=== PATIENT | female | born 1935 | race Caucasian/White ===

== ENCOUNTER 2017-02-09 09:32 | Inpatient (IN) | payer BC ==
--- NOTE | ~2017-02-09 | DS ---
Discharge Summary [address] [place]. [address] NAME: JAMAICA IBARRA : 34 STATUS : DIS IN PAT#: [id number] AGE: 81 ADM/REG DATE : 02/09/17 MR#: [id number] REPORT SERV DATE: 02/16/17 DICTATED BY: DATE: REPORT STATUS : Draft TRANSCRIBED BY: MODL DATE: 02/15/17 ADMISSION DATE: 02/09/2017 DISCHARGE DATE: 02/15/2017 DISCHARGE DIAGNOSES: 1. Multiple pulmonary nodules. 2. Severe weight loss. 3. Catheter associated urinary tract infection that was present on arrival. 4. Diabetes mellitus type 2. 5. Anemia. 6. Chronic low back pain. 7. Hypertension. CONSULTING PHYSICIANS: Include Dr. Feliciano with Pulmonology. DISCHARGE MEDICATIONS: Include Neurontin 300 mg p.o. t.i.d., atenolol 25 mg p.o. at bedtime, Lidocaine patch 700 mg topical daily, lisinopril 10 mg p.o. daily, Mobic 15 mg p.o. daily, mirtazapine 15 mg p.o. at bedtime, Macrobid 100 mg p.o. b.i.d. x3 more doses, MiraLAX one packet p.o. daily, Dulcolax 10 mg suppository p.r.n. for constipation, Valium 5 mg p.o. at bedtime p.r.n., [place] 10/325 mg tablet one tab p.o. q.4 hours p.r.n. PROCEDURE: Include bronchoscopy performed by Dr. Feliciano. Examination was normal. Bronchoalveolar lavage was performed. Transbronchial brushings were obtained, and transbronchial lung biopsies were performed. We are still awaiting biopsy results. Multiple chest x-rays were performed. Initially, there were interstitial and alveolar infiltrates that had improved from 01/17/2017 with patchy residual and hyperinflation. 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 CT of the brain without contrast was performed. No acute infarct or hemorrhage was noted. Mild atrophy and chronic white matter gliosis was noted. MRI of the lumbar spine was performed that showed significant facet arthropathy. There is a small L5-S1 herniation and neural foraminal stenosis on the left at L4-5, which could explain left L4 or L5 nerve root irritation clinically. CT of the abdomen and pelvis with contrast was performed, and CT of the chest with contrast was performed. There were bilateral infiltrates and small focal areas of consolidation, slightly increased compared to 01/27/2017 especially in the right lower lobe and posterior right upper lobe. This was performed on 02/10/2017. No evidence of acute abnormality within the abdomen or pelvis was noted. For full history and physical, please refer to Dr. Shae Schmitz, dictation on 02/09/2017. Please also see Alpesh Burton PA-C consultation dictation on 02/09/2017, and lastly please refer to Dr. Tommie Evangelista's interim discharge summary on 02/14/2017. In the last 24 hours, the patient has remained clinically stable. She did well with her bronchoscopy yesterday. Discharge Summary [address] [address] NAME: JAMAICA IBARRA : 34 STATUS : DIS IN PAT#: [id number] AGE: 81 ADM/REG DATE : 02/09/17 MR#: [id number] REPORT SERV DATE: 02/16/17 DICTATED BY: DATE: REPORT STATUS : Draft TRANSCRIBED BY: MODL DATE: 02/15/17 On last vital signs; temp 97.6, heart rate 77, respiratory rate 20, O2 saturation 94% on room air, blood pressure 136/63. HOSPITAL COURSE/PROBLEM LIST: 1. Multiple pulmonary nodules. After bronchoscopy yesterday, Dr. Feliciano did not use see an overt tumor or anything else upon examination. We are still awaiting biopsy brush results. Possibly, the patient has Mycobacterium avium complex but we will see what the results show. 2. Severe weight loss. The patient has lost 70 to 80 pounds in seven to eight months ago. We will continue the patient on mirtazapine. She has been eating well in the last 24 hours. She is drinking Boost supplements, and I will continue her mirtazapine upon discharge. 3. Urinary tract infection that was present on arrival. The patient has been on nitrofurantoin for four days now. Continue this for three more doses completing a five- day course. 4. Diabetes mellitus type 2. This is controlled. She has not required insulin since admission. She is not on oral agents at this time. She can follow up with her primary care provider for further monitoring of this. 5. Anemia. Hemoglobin and hematocrit were 9.6 and 30.5, this is likely due to malnutrition. Again this can be monitored as an outpatient with her primary care provider during her next followup visit. 6. Chronic low back pain. As mentioned above in the MRI of the spine, the patient does have significant facet disease. I will continue her p.r.n. narcotic medications. 7. Hypertension. The patient's blood pressure has been controlled. We will continue her atenolol and lisinopril. The patient will be transferred to [facility] for acute rehab. She will follow up with Dr. Abreu of Pulmonology in two to four weeks as well as Dr. Francisco Javier Up, her primary care provider. CLR/MODL Victor M Mena NP / [id number] CC: MD Francisco Javier Mccord M.D. Pamela Sud, M.D.
--- NOTE | ~2017-02-09 | IDS ---
Interim Discharge Summary [facility] [address] [place]. [address] NAME: JAMAICA IBARRA : 34 STATUS : ADM IN PAT#: [id number] AGE: 81 ADM/REG DATE : 02/09/17 MR#: [id number] REPORT SERV DATE: 02/14/17 DICTATED BY: CHRIS ANTONIO DATE: 02/14/17 REPORT STATUS : Draft TRANSCRIBED BY: MODHiro DATE: 02/14/17 ADMISSION DATE: 02/09/2017 DISCHARGE DATE: DATE OF INTERIM SUMMARY: 02/14/2017 PRINCIPAL DIAGNOSIS: Pulmonary nodules. SECONDARY DIAGNOSES: Severe weight loss with failure to thrive syndrome; catheter-associated UTI, present on admission; uncontrolled hypertension; type 2 diabetes, in remission; anemia of chronic disease; chronic low back pain with chronic opioid dependence and opioid-induced constipation; generalized weakness; and heart murmur, not otherwise specified. HISTORY OF PRESENT ILLNESS: Please see Dr. Foster's dictation, 02/09/2017. HOSPITAL COURSE: Admitted with weakness, urinary infection, failure to thrive, found to have an abnormal x-ray, abnormal CT with pulmonary nodules. The patient actually had been referred to Dr. Feliciano previously for a biopsy of these, but she had been lost to followup and she was encouraged to seek admission to have this done as an inpatient. Bronchoscopy with biopsy was done on 02/14/2017, results of which are pending. However, the patient's weakness and weight loss were profound. She had lost 70 to 80 pounds in seven to eight months. She had become dependent on opioids and become increasingly bedridden in account of severe low back pain. MRI of the L-spine had revealed some facet disease and some spondylosis, but there was no spinal stenosis or critical need for surgical intervention. The patient received a bowel regimen, was put on appetite stimulants and nutritional supplements. Physical therapy, occupational therapy, and nutritional therapy were all on board. Her case with anticipation of [facility] facility placement following discharge. I had conferred with the patient's family, however, regarding the importance of eating and that if her appetite would not increase, decisions for end of life care should be discussed. We do anticipate ramping up the mirtazapine in the meantime with addition of Megace if her biopsy is negative for neoplasia. If, however, positive for neoplasia, once again, end of life care will need to be discussed. Dr. Askew will see this patient tomorrow. JOSÉ MANUEL/EWA Chris Antonio M.D. / [id number] CC: Chris Antonio M.D. Interim Discharge Summary [address] [address] NAME: JAMAICA IBARRA : 34 STATUS : ADM IN [facility]#: [id number] AGE: 81 ADM/REG DATE : 02/09/17 MR#: [id number] REPORT SERV DATE: 02/14/17 DICTATED BY: CHRIS ANTONIO DATE: 02/14/17 REPORT STATUS : Draft TRANSCRIBED BY: EWA DATE: 02/14/17 Sonia Garcia M.D.
--- NOTE | ~2017-02-09 | HP ---
History And Physical [id number] [facility] [place]. [address] NAME: JAMAICA IBARRA : 34 STATUS : ADM Darron PAT#: [id number] AGE: 81 ADM/REG DATE : 02/09/17 MR#: [id number] REPORT SERV DATE: 02/09/17 DICTATED BY: APRIL SCHMITZ DATE: 02/09/17 REPORT STATUS : Draft TRANSCRIBED BY: MODHiro DATE: 02/09/17 DATE OF ADMISSION: 02/09/2017 CHIEF COMPLAINT: Multiple. HISTORY OF PRESENT ILLNESS: The patient is an 81-year-old white female, who lives at home with her who suffers from dementia, and she is here alone in the emergency department. Apparently, he dropped her off. She can really provide a little in the way of history, says she has felt poor. She appears quite cachectic. For additional history, I contacted Dr. Up's office. Apparently, she has lost a tremendous amount of weight over the last six months to one year and she has not been eating. He feared that she could have some underlying malignancy, actually CT'd her chest, abdomen, pelvis and he found that she had these opacities on her CT chest. It was described as an extensive tree-in-bud infiltrates compared to 2013 with development of peripheral triangular soft tissue densities most consistent with possible organizing pneumonia versus MAC. He was concerned she could have an underlying malignancy and felt she needed to see Dr. Feliciano again. She had seen him previously for what sounds like a lung nodule. She never actually showed up for the appointment, would never return phone calls, and Dr. Up became concerned. Finally, she was agreeable to come to the hospital and she presented to the ER today. She cannot really tell me if she has had fever or cough and her is no longer at bedside. PAST MEDICAL HISTORY: Positive for, 1. Diabetes mellitus. 2. Chronic urinary retention with chronic indwelling suprapubic catheter. 3. GERD. 4. Hypertension. 5. Anemia. 6. Lung nodule. 7. Esophageal stricture with dilatation. 8. Dysphagia. PAST SURGICAL HISTORY: She has had cataract surgery, neck surgery, left rotator cuff surgery, small bowel obstruction repair x2, hernia repair, appendectomy, cholecystectomy, hysterectomy. SOCIAL HISTORY: She is a nondrinker, nonsmoker. She lives with her who also suffers from dementia. FAMILY HISTORY: Positive for diabetes mellitus. HOME MEDICATIONS: Pending the MAR. REVIEW OF SYSTEMS: Full 10-point review of systems obtained. Pertinent positives are mentioned in the HPI. PHYSICAL EXAMINATION: History And Physical [address] [address] NAME: JAMAICA IBARRA : 34 STATUS : ADM Darron PAT#: [id number] AGE: 81 ADM/REG DATE : 02/09/17 MR#: [id number] REPORT SERV DATE: 02/09/17 DICTATED BY: APRIL SCHMITZ DATE: 02/09/17 REPORT STATUS : Draft TRANSCRIBED BY: EWA DATE: 02/09/17 GENERAL: Very cachectic, frail-appearing, white female. HEENT: Normocephalic, atraumatic. HEART: Regular rate and rhythm with 3/6 systolic ejection murmur. LUNGS: She has some wheezes at the bases and some crackles. ABDOMEN: Soft, nontender, nondistended. She has a suprapubic catheter in place. EXTREMITIES: Warm and dry. Skin is intact. She has pulses in her feet. No obvious rashes are noted. Chest x-ray was unrevealing. Strep screen was negative. CBC: White count was 12, H and H 11 and 34, and platelets 459. Coags are normal. Urinalysis shows greater than 182 reds, many white blood cell clumps, and large leukocyte esterase. Basic metabolic panel: Sodium 132, potassium 2.9, chloride 85, CO2 of 33, BUN and creatinine 18 and 0.49, glucose 130. LFTs are normal other than albumin of 3.4. Troponin is 0.02. Lactate was normal at 1.2. Chest x-ray showed slightly less hyper-aerated lungs, but similar to previous chest x-ray. BNP was 124. EKG showed sinus rhythm with LVH. ASSESSMENT/PLAN: 1. Urinary tract infection. We will cover with Zosyn since it is a complicated urinary tract infection with suprapubic catheter. Hydrate gently overnight. 2. Hypokalemia. We will replace potassium. 3. Mild hyponatremia. We will give her some normal saline overnight and hydration. I suspect she is volume depleted. 4. Diabetes mellitus. We will add some sliding scale and confirm her home medications. 5. Weight loss with recent abnormal chest CT with the above-mentioned findings. We will contact Pulmonary. Dr. Up wanted her to be seen by Dr. Feliciano while she is here for further diagnostic evaluation. 6. DVT prophylaxis. Subcutaneous heparin. 7. History of hypertension. Again confirming home medications. 8. Relatively new onset dementia. We will give her some IV thiamine. I am going to CT her brain without contrast. Check her prealbumin. Check her thyroid function and go from there. 9. Disposition. Pending above. HANANE/MODL Apirl Schmitz M.D. / [id number] CC: Onesimo Foster Jr, MD Mark Heinsohn, M.D. Krishnendu Bhadra, M.D.
--- NOTE | ~2017-02-09 | CN ---
Consultation Report [facility] [address] [place]. [address] NAME: FILOMENA PICHARDO : 34 STATUS : ADM Darron PAT#: [id number] AGE: 81 ADM/REG DATE : 02/09/17 MR#: [id number] REPORT SERV DATE: 02/09/17 DICTATED BY: ALPESH QURESHI DATE: 02/09/17 REPORT STATUS : Draft TRANSCRIBED BY: MODL DATE: 02/09/17 CONSULT NOTE DATE OF CONSULTATION: 02/09/2017 CHIEF COMPLAINT: Abnormal findings on a CT of the chest performed on 01/27/2017. Mrs. Filomena Pichardo is a frail 81-year-old white female with a past medical history significant for diabetes mellitus, hypertension, chronic urinary retention status post suprapubic catheter, who presents to [facility]'s emergency room with weakness. It should be noted that Mrs. Pichardo has not been hospitalized recently. That being said, she has had a declining course as of late. Mrs. Pichardo is not currently followed by a unemployment claims adjudicator. She does not usually require supplemental oxygen. She is on no pulmonary medications. The patient describes herself as a never smoker. She largely denies symptomatology related to obstructive sleep apnea. She describes her exercise tolerance is being somewhat limited, but cannot specifically quantify. Mrs. Pichardo has had some significant weight loss over the last few months. She states that she might have lost 40 pounds total. From a history, it seems that she presented to her primary care physician who eventually ordered a CT of her chest. This was performed 01/27/2017 and demonstrated some tree-in-bud interstitial infiltrates as well as some triangular-shaped densities bilaterally. The patient eventually presented to the emergency room with complaints of weakness. Initial blood pressure was 172 systolic. She was afebrile. She had appropriate oxygenation on room air. She had an elevated white blood cell count of 12,400. Potassium was 2.8, subsequently repleted. Creatinine was 0.49. Due to the concerns of her CT findings, Pulmonary has been consulted. Currently, the patient denies any shortness of breath. She denies any cough. She denies any wheezing in her chest. She denies any chest pain. She denies any recent episodes of hemoptysis. She is not producing any purulent sputum. She denies childhood asthma, past smoking history, or any unusual exposures. The patient does have known hypertension. She currently denies any murmurs, angina, or palpitations. She denies any orthopnea, paroxysmal nocturnal dyspnea, or edema. In regard to constitutional symptoms, she had one episode of chills yesterday. She does have a decreased appetite. She denies any night sweats. She denies any abdominal pain or edema. PAST MEDICAL HISTORY: 1. Chronic urinary retention, status post suprapubic catheter placement. 2. Diabetes mellitus. Consultation Report [address] [place]. [address] NAME: FILOMENA PICHARDO : 34 STATUS : ADM Darron PAT#: [id number] AGE: 81 ADM/REG DATE : 02/09/17 MR#: [id number] REPORT SERV DATE: 02/09/17 DICTATED BY: ALPESH QURESHI DATE: 02/09/17 REPORT STATUS : Draft TRANSCRIBED BY: EWA DATE: 02/09/17 3. Hypertension. 4. Previous DVT. 5. Previous pneumonia. PAST SURGICAL HISTORY: 1. Left rotator cuff surgery. 2. Appendectomy. 3. Cholecystectomy. 4. Small bowel obstruction, status post lysis of adhesions. 5. Hysterectomy. 6. Right knee surgery. 7. Neck surgery. 8. Suprapubic catheter placement. 9. EGD with esophageal dilatation. FAMILY HISTORY: The patient denies a family history of lung disease. SOCIAL HISTORY: The patient lives at home. She has a son and a granddaughter who are participants in her healthcare. She denies any known exposures to dust, silica, or asbestos. She denies any recent sick contacts. TOBACCO/ALCOHOL: As previously mentioned, the patient describes herself as a never smoker. She denies any recent alcohol or illicit drug use. MEDICATIONS: 1. Gabapentin 300 mg. 2. Hydrocodone 10/325. 3. Lisinopril 10 mg. 4. Meloxicam 15 mg. 5. Propranolol 10 mg. ALLERGIES: THE PATIENT HAS KNOWN ALLERGY TO SULFA. REVIEW OF SYSTEMS: A complete review of systems was performed with pertinent positives and negatives contained within the body of the HPI. PHYSICAL EXAMINATION: VITAL SIGNS: Blood pressure is 175/78, heart rate is 91, T-max is 99.8, respiratory rate is 16, SpO2 is 95% on room air. GENERAL: The patient is a pleasant, well-nourished/well-developed female who is not currently exhibiting any signs of acute distress. SKIN: Skin with appropriate texture and turgor. No rashes, lesions, or ulcers. Nails are clear without cyanosis or clubbing. HEENT: Head: Skull is normocephalic/atraumatic. Facies symmetric. No masses or lesions. Consultation Report [address] [place]. [address] NAME: FILOMENA PICHARDO : 34 STATUS : ADM Darron PAT#: [id number] AGE: 81 ADM/REG DATE : 02/09/17 MR#: [id number] REPORT SERV DATE: 02/09/17 DICTATED BY: ALPESH QURESHI DATE: 02/09/17 REPORT STATUS : Draft TRANSCRIBED BY: EWA DATE: 02/09/17 Eyes: Sclera anicteric, conjunctiva pink without exudates. Extraocular movements intact. Pupils are equal, round, reactive to light. Ears: Auricles and tragus without pain to palpation. Hearing is grossly intact. Nose: Bilateral nasal patency. Sinuses without tenderness upon palpation. Throat: The patient is edentulous. Lips, oral mucosa, tongue, palate, and pharynx pink and moist without lesions. Uvula rises equally on phonation. Tongue midline without deviation. NECK: Neck supple. Trachea midline. No cervical lymphadenopathy appreciated. THORAX/LUNGS: Thorax is symmetric with equal chest rise. Breath sounds audible through entire field. A few scattered inspiratory crackles. No rales, wheezes, rhonchi. CARDIOVASCULAR: Regular rate and rhythm. No murmurs, rubs, or gallops. Anterior chest without thrills, heaves, or lifts. ABDOMEN: Soft. Nondistended, nontender. Active bowel sounds in all four quadrants. No hepatosplenomegaly noted. PERIPHERAL/VASCULAR: No edema. No varicosities, stasis changes, open sores, ulcerations, or phlebitis. 2+ pulses in radial and dorsalis pedis. MUSCULOSKELETAL: Full AROM and PROM in all joints. No evidence of erythema, deformity, or crepitus. NEUROLOGIC: CN 2 through 12 grossly intact. Good muscle bulk and tone bilaterally. Strength 5/5 throughout. PSYCHIATRIC: The patient demonstrates good judgment and insight. The patient is A and O x3. Accessory [place] [address]. Potassium is 2.8, magnesium is 1.4. PA and lateral of the chest reveals interstitial and alveolar infiltrates, which have improved. CT of the chest and abdomen is pending. IMPRESSION: 1. Possible aspiration. 2. Tree-in-bud infiltrates. 3. Weight loss. 4. Urinary tract infection. PLAN: 1. At this time, we will check a bedside swallow eval to rule out chronic aspiration of the source of her infiltrates. 2. In regard to her abnormal CT of the chest, it would be reasonable to pursue bronchoscopy once aspiration pneumonia has been ruled out. The patient has been placed on antibiotics appropriately. We will check a procalcitonin to help guide further antibiotic therapy. We will tentatively plan for bronchoscopy pending the results with a bedside swallow evaluation. The aforementioned impression and plan has been discussed with Dr. Kimball, who will follow further recommendations. We thank you for this consult and look forward participating in the care of Filomena Juarez Consultation Report [address] [address] NAME: FILOMENA PICHARDO : 34 STATUS : ADM Darron PAT#: [id number] AGE: 81 ADM/REG DATE : 02/09/17 MR#: [id number] REPORT SERV DATE: 02/09/17 DICTATED BY: ALPESH QURESHI DATE: 02/09/17 REPORT STATUS : Draft TRANSCRIBED BY: MODL DATE: 02/09/17 [place]. LOPEZ/EWA Alpesh Qureshi PA-C / [id number] CC: Onesimo Foster Jr, MD Mark Heinsohn, M.D.
--- NOTE | ~2017-02-09 | EGD ---
EGD REPORT [facility] [address] [address] NAME: FILOMENA PICHARDO : 33 STATUS : ADM IN PAT#: [id number] AGE: 81 ADM/REG DATE : 02/09/17 MR#: [id number] REPORT SERV DATE: 02/14/17 DICTATED BY: GEE DIAZ DATE: 02/14/17 REPORT STATUS : Draft TRANS[facility]IB[facility] BY: [facility] DATE: 02/14/17 Pulmonology Patient Name: Filomena Pichardo Procedure Date: 02/14/2017 9:48 AM Date of : 1935 Attending MD: JOHANN DIAZ MD Procedure Date No Time: 02/14/2017 Procedure: Bronchoscopy Indications: Bilateral infiltrate Providers: JOHANN DIAZ MD Referring MD: LUL MATUTE Medicines: Lidocaine 2% 20 mL Complications: No immediate complications Procedure: Pre-Anesthesia Assessment: - ASA Grade Assessment: III - A patient with severe systemic disease. - A History and Physical has been performed. Patient meds and allergies have been reviewed. The risks and benefits of the procedure and the sedation options and risks were discussed with the patient. All questions were answered and informed consent was obtained. Patient identification and proposed procedure were verified prior to the procedure by the physician and the nurse in the pre-procedure area in the procedure room. Mental Status Examination: normal. Airway Examination: normal oropharyngeal airway. Respiratory Examination: clear to auscultation. CV Examination: normal and RRR, no murmurs, no S3 or S4. ASA Grade Assessment: IV - A patient with severe systemic disease that is a constant threat to life. After reviewing the risks and benefits, the patient was deemed in satisfactory condition to undergo the procedure. The anesthesia plan was to use general anesthesia. Immediately prior to administration of medications, the patient was re-assessed for adequacy to receive sedatives. The heart rate, respiratory rate, oxygen saturations, blood pressure, adequacy of pulmonary ventilation, and response to care were monitored throughout the procedure. The physical status of the patient was re-assessed after the procedure. After obtaining informed consent, the Bronchoscope was introduced through the mouth, via the endotracheal tube (the patient was intubated for the procedure) and advanced to the tracheobronchial tree. The procedure was accomplished without difficulty. The patient tolerated the procedure well. EGD REPORT [id number] [place]. [address] NAME: FILOMENA PICHARDO : [birth year] STATUS : ADM IN [facility]#: [id number] AGE: 81 ADM/REG DATE : 02/09/17 MR#: [id number] REPORT SERV DATE: 02/14/17 DICTATED BY: GEE DIAZ DATE: 02/14/17 REPORT STATUS : Draft [facility]ANSCRIBED BY: [facility] DATE: 02/14/17 Findings: The endotracheal tube is in good position. The visualized portion of the trachea is of normal caliber. The sera is sharp. The tracheobronchial tree was examined to at least the first subsegmental level. Bronchial mucosa and anatomy are normal; there are no endobronchial lesions, and no secretions. Bronchoalveolar lavage was performed in the right middle lobe of the lung and sent for cell count, cytology, bacterial culture, viral smears \T\ culture, and fungal and AFB analysis. 180 mL of fluid were instilled. 30 mL were returned. The return was cellular. Mucous plugs were present in the return fluid Fluoroscopically guided transbronchial brushings were obtained in the right middle lobe of the lung and sent for routine cytology and bacterial, AFB and fungal analysis. Two samples were obtained. Transbronchial biopsies were performed in the right upper lobe, in the right middle lobe and in the right lower lobe of the lung using forceps and sent for histopathology examination and bacterial, AFB and fungal analysis. The procedure was guided by fluoroscopy. Twelve biopsy passes were performed. Eight biopsy samples were obtained. Impression: - The examination was normal. - Bronchoalveolar lavage was performed. - Fluoroscopically guided transbronchial brushings were obtained. - Transbronchial lung biopsies were performed. Recommendation: - Await test results. - Chest X-ray. - Follow up with bronchoscopist tomorrow. Attending Participation: I personally performed the entire procedure. JOHANN DIAZ MD 02/14/2017 12:06 PM This report has been signed electronically. Number of Addenda: 0 Note Initiated On: 02/14/2017 9:48 AM [address] [id number]
[~2017-02-09 09:32] MED LIST: AZO-TABS95 MG OR; CITRACAL PO; I10 PO; INSNOV7030 SC; IRON OR; IRON PO; LEVAQUIN5T PO; LORTAB 5 PO; LORTAB10 PO; MAXIDONE PO; MIRALAXPKT PO; MOBIC15 MG PO; MOMUD PO; MULTIVIT/MIN PO; NEUR300 PO; NORCO1 TA1 PO; NOVOPENMIX SC; PRILO PO; PRIN10 PO; PROPANOLOL PO; PROTONIX PO; VITAMIN B-121000 MC1 SL
[2017-02-09 10:36] LABS: BASOPHILS 0 %; EOSINOPHILS 0 %; HEMATOCRIT 33.4 % (36.0-48.0); HEMOGLOBIN 10.8 g/dL (12.0-16.0); IMMATURE GRANULOCYTES 0.2 %; IMMATURE GRANULOCYTES ABSOLUTE 0.02 10/3/uL (0.0-0.11); LYMPHOCYTES 11.6 %; LYMPHOCYTES ABSOLUTE 1.44 10/3/uL (0.67-4.30); MEAN CORPUS HGB CONC 32.3 g/dL (32.0-36.0); MEAN CORPUSCULAR HEMOGLOB 27.3 pg (26.0-34.0); MEAN PLATELET VOLUME 8.9 fL (9.2-13.0); MONOCYTES 4.4 %; MONOCYTES ABSOLUTE 0.54 10/3/uL (0.21-1.20); NEUTROPHILS 83.8 %; PLATELET COUNT 459 10/3/uL (150-400); RBC DISTRIBUTION WIDTH 14.6 % (12.0-16.0); RED CELL COUNT 3.95 10/6/uL (4.0-5.6); WHITE BLOOD CELLS 12.4 10/3/uL (4.5-10.5)
[2017-02-09 10:37] LABS: ER CBC TAT 0 Hrs 08 Mins; MANUAL DIFF NO %; MEAN CORPUSCULAR VOLUME 84.6 fL (80-100)
[2017-02-09 10:44] LABS: INTERNATIONAL NORMAL RATI 1.1 UNITS (-); PARTIAL THROMBO TIME 32.7 SEC (22.5-37.2); PROTIME (NOT ORD) 14.3 SEC (12.0-14.5)
[2017-02-09 10:48] LABS: ASCORBIC ACID (UR NOT ORDER) NEG (NEG); BILIRUBIN, URINE NEGATIVE (NEG); ER URINALYSIS TAT 0 Hrs 16 Mins; KETONE, URINE 20 MG/DL (NEG); LEUKOCYTE ESTERASE(NOT OR LARGE (NEG)
[2017-02-09 10:51] LABS: NITRITE (URINE) NEG (NEG); WBC (NOT ORDERED) (RFLEX) > 182 (0-5)
[2017-02-09 10:55] LABS: ALBUMIN 3.4 G/DL (3.5-5.0); ALKALINE PHOSPHATASE 78 U/L (45-117); CALCIUM, SERUM 8.7 MG/DL (8.5-10.4); CHEST PAIN PROFILE TAT 0 Hrs 27 Mins; CHLORIDE, SERUM 85 MMOL/L (96-112); CO2 (CARBON DIOXIDE) 33 MMOL/L (24-34); CREATININE 0.49 MG/DL (0.55-1.02); DIRECT BILIRUBIN 0.1 MG/DL (0.0-0.4); GFR AFRICAN AMERICAN 105 ML/MIN (>=60); GFR NON AFRICAN AMERICAN 91 ML/MIN (>=60); INDIRECT BILIRUBIN(NOT ORDER) 0.7 MG/DL (0.1-0.9); POTASSIUM, SERUM 2.8 MMOL/L (3.5-5.3); SGOT(AST) 12 U/L (5-40); SGPT(ALT) 10 U/L (5-65); SODIUM, SERUM 132 MMOL/L (135-148); TROPONIN I <0.02 NG/ML (<0.05)
[2017-02-09 10:56] LABS: BUN (BLOOD UREA NITROGEN) 8 MG/DL (6-23); GLUCOSE, SERUM 130 MG/DL (60-99); TOTAL BILIRUBIN 0.8 MG/DL (0-1.2); TOTAL PROTEIN 8.8 G/DL (6.0-8.5)
[2017-02-09 11:02] LABS: LACTATE 1.2 MMOL/L (0.3-2.4)
[2017-02-09] MEDS ORDERED: DIAZEPAM 5 MG V (11:18)
[2017-02-09] MEDS ORDERED: NORCO1 TAB PO (11:19)
[2017-02-09] MEDS ORDERED: I10 PO (11:19)
[2017-02-09] MEDS ORDERED: NEUR300 PO (11:19)
[2017-02-09] MEDS ORDERED: MOBIC15 MG PO (11:20)
[2017-02-09] MEDS ORDERED: TEARS PURE OPH (11:20)
[2017-02-09] MEDS ORDERED: PRIN10 PO (11:20)
[2017-02-09 16:02] LABS: PREALBUMIN 12.9 MG/DL (17.0-43.0); ULTRASENSITIVE TSH 0.554 MCIU/ML (0.358-3.740)
[2017-02-09 17:51] LABS: PROCALCITONIN <0.05 ng/mL (<0.5)
[2017-02-09 18:50] LABS: BUN (BLOOD UREA NITROGEN) 7 MG/DL (6-23); CALCIUM, SERUM 8.7 MG/DL (8.5-10.4); CHLORIDE, SERUM 91 MMOL/L (96-112); CO2 (CARBON DIOXIDE) 32 MMOL/L (24-34); CREATININE 0.44 MG/DL (0.55-1.02); GFR AFRICAN AMERICAN 109 ML/MIN (>=60); GFR NON AFRICAN AMERICAN 94 ML/MIN (>=60); SODIUM, SERUM 131 MMOL/L (135-148)
[2017-02-09 18:54] LABS: GLUCOSE, SERUM 163 MG/DL (60-99); POTASSIUM, SERUM 3.6 MMOL/L (3.5-5.3)
[2017-02-10 04:20] LABS: BASOPHILS 0.1 %; BASOPHILS ABSOLUTE 0.02 10/3/uL (0.0-0.16); EOSINOPHILS 0 %; HEMATOCRIT 30.2 % (36.0-48.0); HEMOGLOBIN 9.6 g/dL (12.0-16.0); IMMATURE GRANULOCYTES 0.3 %; IMMATURE GRANULOCYTES ABSOLUTE 0.04 10/3/uL (0.0-0.11); LYMPHOCYTES 19.4 %; LYMPHOCYTES ABSOLUTE 2.87 10/3/uL (0.67-4.30); MEAN CORPUS HGB CONC 31.8 g/dL (32.0-36.0); MEAN CORPUSCULAR HEMOGLOB 27.3 pg (26.0-34.0); MEAN CORPUSCULAR VOLUME 85.8 fL (80-100); MEAN PLATELET VOLUME 8.8 fL (9.2-13.0); MONOCYTES 8.3 %; MONOCYTES ABSOLUTE 1.22 10/3/uL (0.21-1.20); NEUTROPHILS 71.9 %; NEUTROPHILS ABSOLUTE 10.63 10/3/uL (2.02-8.40); PLATELET COUNT 422 10/3/uL (150-400); RBC DISTRIBUTION WIDTH 14.7 % (12.0-16.0); RED CELL COUNT 3.52 10/6/uL (4.0-5.6); WHITE BLOOD CELLS 14.8 10/3/uL (4.5-10.5)
[2017-02-10 04:22] LABS: MANUAL DIFF NO %
[2017-02-10 05:01] LABS: BUN (BLOOD UREA NITROGEN) 7 MG/DL (6-23); CALCIUM, SERUM 8.3 MG/DL (8.5-10.4); CHLORIDE, SERUM 95 MMOL/L (96-112); CO2 (CARBON DIOXIDE) 30 MMOL/L (24-34); CREATININE 0.38 MG/DL (0.55-1.02); GFR AFRICAN AMERICAN 114 ML/MIN (>=60); GFR NON AFRICAN AMERICAN 99 ML/MIN (>=60); POTASSIUM, SERUM 3.2 MMOL/L (3.5-5.3); SODIUM, SERUM 133 MMOL/L (135-148)
[2017-02-10 05:04] LABS: GLUCOSE, SERUM 91 MG/DL (60-99)
[2017-02-11 04:01] LABS: BASOPHILS 0.1 %; BASOPHILS ABSOLUTE 0.01 10/3/uL (0.0-0.16); EOSINOPHILS 0.3 %; EOSINOPHILS ABSOLUTE 0.03 10/3/uL (0.0-0.53); HEMOGLOBIN 8.4 g/dL (12.0-16.0); IMMATURE GRANULOCYTES 0.4 %; IMMATURE GRANULOCYTES ABSOLUTE 0.04 10/3/uL (0.0-0.11); LYMPHOCYTES 29.2 %; LYMPHOCYTES ABSOLUTE 3.19 10/3/uL (0.67-4.30); MEAN CORPUS HGB CONC 31.8 g/dL (32.0-36.0); MEAN CORPUSCULAR HEMOGLOB 27.9 pg (26.0-34.0); MEAN CORPUSCULAR VOLUME 87.7 fL (80-100); MEAN PLATELET VOLUME 8.8 fL (9.2-13.0); MONOCYTES 7.7 %; MONOCYTES ABSOLUTE 0.84 10/3/uL (0.21-1.20); NEUTROPHILS 62.3 %; NEUTROPHILS ABSOLUTE 6.81 10/3/uL (2.02-8.40); PLATELET COUNT 399 10/3/uL (150-400); RBC DISTRIBUTION WIDTH 15.2 % (12.0-16.0); RED CELL COUNT 3.01 10/6/uL (4.0-5.6); WHITE BLOOD CELLS 10.9 10/3/uL (4.5-10.5)
[2017-02-11 04:11] LABS: HEMATOCRIT 26.4 % (36.0-48.0); MANUAL DIFF NO %
[2017-02-11 04:18] LABS: BUN (BLOOD UREA NITROGEN) 7 MG/DL (6-23); CALCIUM, SERUM 7.5 MG/DL (8.5-10.4); CHLORIDE, SERUM 99 MMOL/L (96-112); CO2 (CARBON DIOXIDE) 31 MMOL/L (24-34); CREATININE 0.43 MG/DL (0.55-1.02); GFR AFRICAN AMERICAN 110 ML/MIN (>=60); GFR NON AFRICAN AMERICAN 95 ML/MIN (>=60); GLUCOSE, SERUM 85 MG/DL (60-99); POTASSIUM, SERUM 3.5 MMOL/L (3.5-5.3); PREALBUMIN 10.1 MG/DL (17.0-43.0); SODIUM, SERUM 135 MMOL/L (135-148)
[2017-02-11 04:26] LABS: PHOSPHORUS, SERUM 2.9 MG/DL (2.5-4.5)
[2017-02-12 05:35] LABS: BUN (BLOOD UREA NITROGEN) 5 MG/DL (6-23); CALCIUM, SERUM 8.3 MG/DL (8.5-10.4); CHLORIDE, SERUM 102 MMOL/L (96-112); CO2 (CARBON DIOXIDE) 29 MMOL/L (24-34); CREATININE 0.31 MG/DL (0.55-1.02); GFR AFRICAN AMERICAN 122 ML/MIN (>=60); GFR NON AFRICAN AMERICAN 105 ML/MIN (>=60); GLUCOSE, SERUM 90 MG/DL (60-99); PHOSPHORUS, SERUM 2.3 MG/DL (2.5-4.5); POTASSIUM, SERUM 3.5 MMOL/L (3.5-5.3); SODIUM, SERUM 139 MMOL/L (135-148)
[2017-02-14 10:20] LABS: BASOPHILS 0.1 %; BASOPHILS ABSOLUTE 0.01 10/3/uL (0.0-0.16); EOSINOPHILS 1.3 %; HEMOGLOBIN 9.6 g/dL (12.0-16.0); IMMATURE GRANULOCYTES 0.4 %; IMMATURE GRANULOCYTES ABSOLUTE 0.03 10/3/uL (0.0-0.11); LYMPHOCYTES 25.7 %; LYMPHOCYTES ABSOLUTE 2.03 10/3/uL (0.67-4.30); MEAN CORPUS HGB CONC 31.5 g/dL (32.0-36.0); MEAN CORPUSCULAR HEMOGLOB 27.4 pg (26.0-34.0); MEAN CORPUSCULAR VOLUME 86.9 fL (80-100); MEAN PLATELET VOLUME 8.9 fL (9.2-13.0); MONOCYTES 8.2 %; MONOCYTES ABSOLUTE 0.65 10/3/uL (0.21-1.20); NEUTROPHILS 64.3 %; NEUTROPHILS ABSOLUTE 5.07 10/3/uL (2.02-8.40); PLATELET COUNT 378 10/3/uL (150-400); RBC DISTRIBUTION WIDTH 15.9 % (12.0-16.0); RED CELL COUNT 3.51 10/6/uL (4.0-5.6); RETICULOCYTE COUNT 1.4 % (0.5-2.5); RETICULOCYTE COUNT ABSOLUTE 48.1 10/3/uL (20.2-119.8); WHITE BLOOD CELLS 7.9 10/3/uL (4.5-10.5)
[2017-02-14 10:22] LABS: HEMATOCRIT 30.5 % (36.0-48.0); MANUAL DIFF NO %
[2017-02-14 10:31] LABS: % IRON SAT 31 % (20-50); A/G RATIO 0.6 (0.7-1.9); ALBUMIN 2.6 G/DL (3.5-5.0); ALKALINE PHOSPHATASE 52 U/L (45-117); BUN (BLOOD UREA NITROGEN) 7 MG/DL (6-23); CALCIUM, SERUM 8.9 MG/DL (8.5-10.4); CHLORIDE, SERUM 103 MMOL/L (96-112); CO2 (CARBON DIOXIDE) 29 MMOL/L (24-34); CREATININE 0.29 MG/DL (0.55-1.02); FERRITIN 84 NG/ML (8-252); GFR AFRICAN AMERICAN 125 ML/MIN (>=60); GFR NON AFRICAN AMERICAN 108 ML/MIN (>=60); GLOBULIN 4.3 G/DL (2.5-4.1); GLUCOSE, SERUM 88 MG/DL (60-99); IRON BINDING CAPACITY 197 MCG/DL (225-410); IRON, SERUM 61 MCG/DL (35-150); PHOSPHORUS, SERUM 2.8 MG/DL (2.5-4.5); POTASSIUM, SERUM 4.2 MMOL/L (3.5-5.3); SGOT(AST) 13 U/L (5-40); SGPT(ALT) 7 U/L (5-65); SODIUM, SERUM 140 MMOL/L (135-148); TOTAL BILIRUBIN 0.2 MG/DL (0-1.2); TOTAL PROTEIN 6.9 G/DL (6.0-8.5)
[2017-02-14 16:48] LABS: BD FL LYMPH (NOT ORD) 7 %; BD FL SOURCE (NOT ORD) BAL RML; BF BASO (NOT OF) 0 %; BF LARGE MONONUCLEAR 12 %; BODY FLUID EOS (NOT ORD) 0 %; BODY FLUID SEG (NOT ORD) 81 %
[2017-02-14 16:49] LABS: BF TOTAL CELL CT (NOT ORD 1445 /MM3; BODY FLUID RBC (NOT ORD) 3000 /MM3
[2017-06-09] MEDS ORDERED: NORCO1 TAB PO (15:27)
[2017-06-09] MEDS ORDERED: CEFT2 PO (15:28)
[2017-06-09] MEDS ORDERED: ZESTRIL10 MG PO (15:29)
[2017-06-09] MEDS ORDERED: METHOC500B PO (15:30)
[2017-06-09] MEDS ORDERED: ATEN25 PO (15:35)
[2017-06-09] MEDS ORDERED: MOBIC15 MG PO (15:35)
[2017-06-09] MEDS ORDERED: LEVEMFLXPN (15:36)
[2017-06-09] MEDS ORDERED: ULTRAM50 (15:38)
[2017-06-09] MEDS ORDERED: COMBIVENT RESPIM4 GM INH (15:46)
[2017-06-09] MEDS ORDERED: [UNRECOGNIZED DRUG - REMARK] (15:49)
[2017-06-10] MEDS ORDERED: NEUR400 PO (14:53)
[2017-06-10] MEDS ORDERED: GABAPENTIN PO (14:56)
[2017-06-10] MEDS ORDERED: MACROBID PO (14:58)
[2017-08-15] MEDS ORDERED: NORCO1 TAB PO (23:40)
[2017-08-15] MEDS ORDERED: PRIN10 PO (23:40)
[2017-08-15] MEDS ORDERED: NEUR300 PO (23:40)
[2017-08-15] MEDS ORDERED: MOBIC15 MG PO (23:40)
[2017-08-15] MEDS ORDERED: SYSTAN1 OPH (23:42)
== END 2017-02-15 18:50 | DRG 166 ==
LOC: ER 09:32 → CDU1 12:21 → 7NO 02-12 15:53
PROVIDERS: Emergency Medicine; Internal Medicine; Physician Assistant Medical
PROC: 0BBF8ZX Excision of Right Lower Lung Lobe, Via Natural or Artificial Opening Endoscopic, Diagnostic (ICD-10-PCS; 2017-02-14)
PROC: 0BBD8ZX Excision of Right Middle Lung Lobe, Via Natural or Artificial Opening Endoscopic, Diagnostic (ICD-10-PCS; principal; 2017-02-14 11:45)
PROC: 0B9D8ZX Drainage of Right Middle Lung Lobe, Via Natural or Artificial Opening Endoscopic, Diagnostic (ICD-10-PCS; 2017-02-14 11:45)
PROC: 0BBD8ZX Excision of Right Middle Lung Lobe, Via Natural or Artificial Opening Endoscopic, Diagnostic (ICD-10-PCS; 2017-02-14 11:45)
PROC: 0BBC8ZX Excision of Right Upper Lung Lobe, Via Natural or Artificial Opening Endoscopic, Diagnostic (ICD-10-PCS; 2017-02-14 11:45)
DX: R91.8 Other nonspecific abnormal finding of lung field (principal); E43 Unspecified severe protein-calorie malnutrition; R64 Cachexia; F03.90 Unspecified dementia, unspecified severity, without behavioral disturbance, psychotic disturbance, mood disturbance, and anxiety; K22.2 Esophageal obstruction; E87.1 Hypo-osmolality and hyponatremia; N39.0 Urinary tract infection, site not specified; F11.20 Opioid dependence, uncomplicated; T83.511A Infection and inflammatory reaction due to indwelling urethral catheter, initial encounter; Z68.1 Body mass index [BMI] 19.9 or less, adult; E11.9 Type 2 diabetes mellitus without complications; R13.10 Dysphagia, unspecified; M47.9 Spondylosis, unspecified; D63.8 Anemia in other chronic diseases classified elsewhere; R33.9 Retention of urine, unspecified; K21.9 Gastro-esophageal reflux disease without esophagitis; I10 Essential (primary) hypertension; N31.9 Neuromuscular dysfunction of bladder, unspecified; D64.9 Anemia, unspecified; E87.6 Hypokalemia; E83.39 Other disorders of phosphorus metabolism; M48.02 Spinal stenosis, cervical region; M51.27 Other intervertebral disc displacement, lumbosacral region; Z83.3 Family history of diabetes mellitus; Z90.49 Acquired absence of other specified parts of digestive tract; Z74.01 Bed confinement status; Z87.01 Personal history of pneumonia (recurrent); Z90.710 Acquired absence of both cervix and uterus
CPT/HCPCS: 70450; 71010; 71020; 71260; 72148; 74177; 80048; 80053; 80076; 81001; 82728; 82962; 83540; 83550; 83605; 83690; 83735; 83880; 84100; 84134; 84145; 84443; 84484; 85025; 85045; 85610; 85730; 87015; 87040; 87070; 87077; 87086; 87102; 87116; 87186; 87205; 87880; 88112; 88305; 89051; 92610-GN; 93005; 93306; 97116-GP; 97162-GP; 97165-GO; 99285; A9270-GY; J0360; J1170; J2370; J2543; J2710; J3411; Q9967

== ENCOUNTER 2017-03-26 21:15 | Emergency (ER) | payer BC ==
[~2017-03-26 21:15] MED LIST changes: +DIAZEPAM 5 MG V; +NORCO1 TAB PO; +TEARS PURE OPH
[2017-03-26 21:27] LABS: BASOPHILS 0.2 %; BASOPHILS ABSOLUTE 0.02 10/3/uL (0.0-0.16); EOSINOPHILS 0.7 %; EOSINOPHILS ABSOLUTE 0.07 10/3/uL (0.0-0.53); ER CBC TAT 0 Hrs 08 Mins; HEMOGLOBIN 8.5 g/dL (12.0-16.0); IMMATURE GRANULOCYTES 0.2 %; IMMATURE GRANULOCYTES ABSOLUTE 0.02 10/3/uL (0.0-0.11); LYMPHOCYTES 29.7 %; MEAN CORPUS HGB CONC 32.2 g/dL (32.0-36.0); MEAN CORPUSCULAR HEMOGLOB 28.3 pg (26.0-34.0); MEAN PLATELET VOLUME 8.9 fL (9.2-13.0); MONOCYTES 9.1 %; MONOCYTES ABSOLUTE 0.89 10/3/uL (0.21-1.20); NEUTROPHILS 60.1 %; NEUTROPHILS ABSOLUTE 5.88 10/3/uL (2.02-8.40); PLATELET COUNT 297 10/3/uL (150-400); RBC DISTRIBUTION WIDTH 14.9 % (12.0-16.0); WHITE BLOOD CELLS 9.8 10/3/uL (4.5-10.5)
[2017-03-26 21:30] LABS: HEMATOCRIT 26.4 % (36.0-48.0); MANUAL DIFF NO %
[2017-03-26 21:32] LABS: ASCORBIC ACID (UR NOT ORDER) NEG (NEG); BILIRUBIN, URINE NEGATIVE (NEG); ER URINALYSIS TAT 0 Hrs 13 Mins; KETONE, URINE NEGATIVE (NEG); LEUKOCYTE ESTERASE(NOT OR LARGE (NEG); NITRITE (URINE) NEG (NEG); WBC (NOT ORDERED) (RFLEX) 84 (0-5)
[2017-03-26 21:37] LABS: INTERNATIONAL NORMAL RATI 1.2 UNITS (-); PARTIAL THROMBO TIME 34.5 SEC (22.5-37.2); PROTIME (NOT ORD) 14.7 SEC (12.0-14.5)
[2017-03-26 21:43] LABS: BUN (BLOOD UREA NITROGEN) 10 MG/DL (6-23); CALCIUM, SERUM 8.7 MG/DL (8.5-10.4); CHEST PAIN PROFILE TAT 0 Hrs 24 Mins; CHLORIDE, SERUM 91 MMOL/L (96-112); CO2 (CARBON DIOXIDE) 34 MMOL/L (24-34); CREATININE 0.57 MG/DL (0.55-1.02); GFR AFRICAN AMERICAN 100 ML/MIN (>=60); GFR NON AFRICAN AMERICAN 86 ML/MIN (>=60); GLUCOSE, SERUM 120 MG/DL (60-99); POTASSIUM, SERUM 3.3 MMOL/L (3.5-5.3); SODIUM, SERUM 129 MMOL/L (135-148); TROPONIN I <0.02 NG/ML (<0.05)
[2017-06-09] MEDS ORDERED: NORCO1 TAB PO (15:27)
[2017-06-09] MEDS ORDERED: CEFT2 PO (15:28)
[2017-06-09] MEDS ORDERED: ZESTRIL10 MG PO (15:29)
[2017-06-09] MEDS ORDERED: METHOC500B PO (15:30)
[2017-06-09] MEDS ORDERED: ATEN25 PO (15:35)
[2017-06-09] MEDS ORDERED: MOBIC15 MG PO (15:35)
[2017-06-09] MEDS ORDERED: LEVEMFLXPN (15:36)
[2017-06-09] MEDS ORDERED: ULTRAM50 (15:38)
[2017-06-09] MEDS ORDERED: COMBIVENT RESPIM4 GM INH (15:46)
[2017-06-09] MEDS ORDERED: [UNRECOGNIZED DRUG - REMARK] (15:49)
[2017-06-10] MEDS ORDERED: NEUR400 PO (14:53)
[2017-06-10] MEDS ORDERED: GABAPENTIN PO (14:56)
[2017-06-10] MEDS ORDERED: MACROBID PO (14:58)
[2017-08-15] MEDS ORDERED: NORCO1 TAB PO (23:40)
[2017-08-15] MEDS ORDERED: NEUR300 PO (23:40)
[2017-08-15] MEDS ORDERED: PRIN10 PO (23:40)
[2017-08-15] MEDS ORDERED: MOBIC15 MG PO (23:40)
[2017-08-15] MEDS ORDERED: SYSTAN1 OPH (23:42)
== END 2017-03-27 02:43 | disposition home or self-care (01) ==
LOC: ER 21:15
PROVIDERS: Physician Assistant
DX: M54.2 Cervicalgia (principal); G89.29 Other chronic pain; D53.9 Nutritional anemia, unspecified; I10 Essential (primary) hypertension; K21.9 Gastro-esophageal reflux disease without esophagitis; F32.9 Major depressive disorder, single episode, unspecified; Z87.01 Personal history of pneumonia (recurrent); Z90.89 Acquired absence of other organs; Z90.49 Acquired absence of other specified parts of digestive tract; Z88.2 Allergy status to sulfonamides; Z88.5 Allergy status to narcotic agent; Z79.899 Other long term (current) drug therapy
CPT/HCPCS: 71010; 72125; 74176; 80048; 81001; 83735; 83880; 84484; 85025; 85610; 85730; 87040; 87077; 87086; 87186; 93005; 96374; 99284; J2405; J3360

== ENCOUNTER 2017-05-07 15:52 | Emergency (ER) | payer BC ==
[2017-05-07 14:22] LABS: BASOPHILS 0.1 %; BASOPHILS ABSOLUTE 0.01 10/3/uL (0.0-0.16); EOSINOPHILS 0 %; HEMOGLOBIN 9.7 g/dL (12.0-16.0); IMMATURE GRANULOCYTES 0.2 %; IMMATURE GRANULOCYTES ABSOLUTE 0.02 10/3/uL (0.0-0.11); LYMPHOCYTES 17.5 %; LYMPHOCYTES ABSOLUTE 1.86 10/3/uL (0.67-4.30); MEAN CORPUS HGB CONC 32.1 g/dL (32.0-36.0); MEAN CORPUSCULAR HEMOGLOB 28.5 pg (26.0-34.0); MEAN CORPUSCULAR VOLUME 88.8 fL (80-100); MEAN PLATELET VOLUME 9.6 fL (9.2-13.0); MONOCYTES 6.8 %; MONOCYTES ABSOLUTE 0.72 10/3/uL (0.21-1.20); NEUTROPHILS 75.4 %; PLATELET COUNT 351 10/3/uL (150-400); RBC DISTRIBUTION WIDTH 14.9 % (12.0-16.0); WHITE BLOOD CELLS 10.6 10/3/uL (4.5-10.5)
[2017-05-07 14:23] LABS: HEMATOCRIT 30.2 % (36.0-48.0); MANUAL DIFF NO %
[2017-05-07 14:30] LABS: INTERNATIONAL NORMAL RATI 1.2 UNITS (-); PROTIME (NOT ORD) 14.7 SEC (12.0-14.5)
[2017-05-07 14:31] LABS: PARTIAL THROMBO TIME 36.2 SEC (22.5-37.2)
[2017-05-07 14:39] LABS: ALKALINE PHOSPHATASE 59 U/L (45-117); CALCIUM, SERUM 9.5 MG/DL (8.5-10.4); CHLORIDE, SERUM 96 MMOL/L (96-112); CO2 (CARBON DIOXIDE) 31 MMOL/L (24-34); CREATININE 0.62 MG/DL (0.55-1.02); GFR AFRICAN AMERICAN 97 ML/MIN (>=60); GFR NON AFRICAN AMERICAN 84 ML/MIN (>=60); SGOT(AST) 9 U/L (5-40); SGPT(ALT) 12 U/L (5-65); SODIUM, SERUM 136 MMOL/L (135-148); TOTAL BILIRUBIN 0.4 MG/DL (0-1.2); TROPONIN I <0.02 NG/ML (<0.05)
[2017-05-07 14:42] LABS: A/G RATIO 0.8 (0.7-1.9); ALBUMIN 3.7 G/DL (3.5-5.0); BUN (BLOOD UREA NITROGEN) 13 MG/DL (6-23); GLOBULIN 4.7 G/DL (2.5-4.1); GLUCOSE, SERUM 117 MG/DL (60-99); POTASSIUM, SERUM 3.1 MMOL/L (3.5-5.3); TOTAL PROTEIN 8.4 G/DL (6.0-8.5)
[2017-05-07 15:05] LABS: ASCORBIC ACID (UR NOT ORDER) 40 (NEG); BILIRUBIN, URINE NEGATIVE (NEG); ER URINALYSIS TAT 0 Hrs 10 Mins; KETONE, URINE TRACE MG/DL (NEG); LEUKOCYTE ESTERASE(NOT OR SMALL (NEG); NITRITE (URINE) NEG (NEG); WBC (NOT ORDERED) (RFLEX) 10 (0-5)
[2017-05-07 15:08] LABS: PROCALCITONIN <0.05 ng/mL (<0.5)
[2017-06-09] MEDS ORDERED: NORCO1 TAB PO (15:27)
[2017-06-09] MEDS ORDERED: CEFT2 PO (15:28)
[2017-06-09] MEDS ORDERED: ZESTRIL10 MG PO (15:29)
[2017-06-09] MEDS ORDERED: METHOC500B PO (15:30)
[2017-06-09] MEDS ORDERED: MOBIC15 MG PO (15:35)
[2017-06-09] MEDS ORDERED: ATEN25 PO (15:35)
[2017-06-09] MEDS ORDERED: LEVEMFLXPN (15:36)
[2017-06-09] MEDS ORDERED: ULTRAM50 (15:38)
[2017-06-09] MEDS ORDERED: COMBIVENT RESPIM4 GM INH (15:46)
[2017-06-09] MEDS ORDERED: [UNRECOGNIZED DRUG - REMARK] (15:49)
[2017-06-10] MEDS ORDERED: NEUR400 PO (14:53)
[2017-06-10] MEDS ORDERED: GABAPENTIN PO (14:56)
[2017-06-10] MEDS ORDERED: MACROBID PO (14:58)
[2017-08-15] MEDS ORDERED: NEUR300 PO (23:40)
[2017-08-15] MEDS ORDERED: PRIN10 PO (23:40)
[2017-08-15] MEDS ORDERED: MOBIC15 MG PO (23:40)
[2017-08-15] MEDS ORDERED: NORCO1 TAB PO (23:40)
[2017-08-15] MEDS ORDERED: SYSTAN1 OPH (23:42)
== END 2017-05-07 16:35 | disposition home or self-care (01) ==
LOC: ER 15:52
PROVIDERS: Nurse Practitioner
DX: R10.9 Unspecified abdominal pain (principal); R07.9 Chest pain, unspecified; E87.6 Hypokalemia; D64.9 Anemia, unspecified; I10 Essential (primary) hypertension; F03.90 Unspecified dementia, unspecified severity, without behavioral disturbance, psychotic disturbance, mood disturbance, and anxiety; E11.9 Type 2 diabetes mellitus without complications; Z93.59 Other cystostomy status; Z87.440 Personal history of urinary (tract) infections; Z90.710 Acquired absence of both cervix and uterus; Z88.2 Allergy status to sulfonamides; Z88.5 Allergy status to narcotic agent; Z79.899 Other long term (current) drug therapy
CPT/HCPCS: 71010; 74176; 80053; 81001; 83605; 84145; 84484; 85025; 85610; 85730; 87040; 87077; 87086; 87186; 93005; 96374; 99285; A9270-GY; J2405